=== PATIENT | male | born 1960 | race Caucasian/White ===

== ENCOUNTER 2018-08-11 13:51 | Emergency (ER) | payer MEDICAID ==
[~2018-08-11] VITALS: Ht 165.1 cm; Wt 49.9 kg
[~2018-08-11 13:51] MED LIST: ACET-8386 PO
[2018-08-11 14:02] VITALS: BP 107/50
--- NOTE | 2018-08-11 14:07 | NUR ---
TO BED 5 WITH STEADY GAIT
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
--- NOTE | 2018-08-11 14:33 | NUR ---
DR NGUYEN AT BEDSIDE EVALUATING PT
[2018-08-11 15:03] VITALS: BP 117/57
== END 2018-08-11 15:04 | disposition home or self-care (01) ==
LOC: MED 13:51
DX: M62.830 Muscle spasm of back (principal); R07.81 Pleurodynia; F17.200 Nicotine dependence, unspecified, uncomplicated; F15.10 Other stimulant abuse, uncomplicated; I10 Essential (primary) hypertension; Z71.6 Tobacco abuse counseling; Z71.51 Drug abuse counseling and surveillance of drug abuser; Z98.890 Other specified postprocedural states; Z79.891 Long term (current) use of opiate analgesic
CPT/HCPCS: 71045; 99283; Q0092

== ENCOUNTER 2018-12-18 23:16 | Emergency (ER) | payer MEDICAID ==
[~2018-12-18] VITALS: Ht 157.5 cm; Wt 49.9 kg
[2018-12-18 23:24] VITALS: BP 154/106
--- NOTE | 2018-12-18 23:29 | NUR ---
PT AMBULATES TO LOBBY WITH STEADY GAIT. AWAITING AVAILABLE BED.
--- NOTE | 2018-12-19 00:57 | NUR ---
PT AMBULATED TO BED 09
[2018-12-19] MEDS ORDERED: LIDOCAINE 2% 1000 MG/50 ML VIAL INJ ONE (01:00)
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
--- NOTE | 2018-12-19 01:52 | NUR ---
Patient discharged with v/s stable. Written and verbal after care instructions given and explained. Patient alert, oriented and verbalized understanding of instructions. Ambulatory with steady gait. All questions addressed prior to discharge. ID band removed. Patient advised to follow up with PMD. Rx of bactrim, motrin, and keflex given. Patient educated on indication of medication including possible reaction and side effects. Opportunity to ask questions provided and answered.
== END 2018-12-19 01:52 | disposition home or self-care (01) ==
LOC: MED 23:16
DX: L02.413 Cutaneous abscess of right upper limb (principal); L02.414 Cutaneous abscess of left upper limb; I10 Essential (primary) hypertension; Z79.899 Other long term (current) drug therapy; Z59.0 Homelessness
CPT/HCPCS: 10061; 99284; J2001; 99283

== ENCOUNTER 2019-08-21 01:46 | Emergency (ER) | payer MEDICAID ==
[~2019-08-21] VITALS: Ht 165.1 cm; Wt 54.4 kg
--- NOTE | 2019-08-21 01:46 | NUR ---
Patient BIBA ALS, transfered to bed 7. RN evaluating patient at bedside.
[2019-08-21 01:52] VITALS: BP 183/107
--- NOTE | 2019-08-21 01:59 | NUR ---
[employer] AT BEDSIDE.
--- NOTE | 2019-08-21 01:59 | NUR ---
BREATHING IS LABORED, DEEP. PT ON 15L NON-REBREATHER. PT O2SAT@ 98%. RT AT BEDSIDE. PT ABLE TO RESPOND TO RT.
--- NOTE | 2019-08-21 02:00 | NUR ---
PT BED 7, ASSUME CARE TO ROBERT ABEBE.
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
--- NOTE | 2019-08-21 02:14 | NUR ---
RT AT BEDSIDE. ABG BEING COLLECTED.
[2019-08-21] MEDS ORDERED: NACL 0.9% 1,500 ML IV ONE (02:25)
--- NOTE | 2019-08-21 02:27 | NUR ---
XRAY AT BEDSIDE.
--- NOTE | 2019-08-21 02:40 | NUR ---
HEPLOCK ESTABLISH G18 ON PT LT AC INFUSING WELL. BLD DRANM INCLUDING BLD CULTURE X2 AND SENT TO LAB.
[2019-08-21] MEDS ORDERED: cefTRIAXone 1,000 MG VIAL ONE (02:42)
[2019-08-21 03:03] LABS: BASOPHILS # (AUTO) 0.1 K/uL (0.00-0.22); BASOPHILS % (AUTO) 2.3 % (0.0-2.0); EOSINOPHILS % (AUTO) 0.4 % (0.0-4.0); HEMATOCRIT 43.1 % (36-52); HEMOGLOBIN 14.3 g/dL (12.0-18.0); LYMPHOCYTES # (AUTO) 0.9 K/uL (2.0-11.5); MEAN CORPUSCULAR HEMOGLOBIN 31 pg (27-31); MEAN CORPUSCULAR HGB CONC 33 g/dL (33-37); MEAN CORPUSCULAR VOLUME 94.3 fL (80-94); MONOCYTES # (AUTO) 0.3 K/uL (0.8-1.0); MONOCYTES % (AUTO) 6.1 % (1.7-9.3); NEUTROPHILS # (AUTO) 3.2 K/uL (1.8-7.7); NEUTROPHILS % (AUTO) 72.2 % (42.2-75.2); PLATELET COUNT (AUTO) 174 K/uL (140-450); RED BLOOD CELL COUNT(AUTO) 4.57 MIL/uL (4.20-6.10); RED CELL DISTRIBUTION WIDTH 13.2 % (11.6-13.7); WHITE BLOOD COUNT (AUTO) 4.5 K/uL (4.8-10.8)
[2019-08-21 03:10] LABS: CREATININE 1.7 mg/dL (0.6-1.3)
--- NOTE | 2019-08-21 03:10 | NUR ---
PT ON 2L NC 02 SAT @ 100%. PT LETHARGIC BUT ORIENTED TO PERSON, PLACE, AND TIME. PT DENIES PAIN AT THIS TIME. VSS.
[2019-08-21 03:16] LABS: PROTHROMBIN TIME 10.1 secs (10.8-13.4)
[2019-08-21 03:28] LABS: ALBUMIN 4.1 g/dL (3.4-5.0); TOTAL BILIRUBIN 0.6 mg/dL (0.0-1.0)
[2019-08-21 03:35] LABS: CKMB RELATIVE INDEX 1.5 (0.0-2.5); CREATINE KINASE MB 7.9 ng/mL (0-3.6)
--- NOTE | 2019-08-21 04:00 | NUR ---
PT UNABLE TO PROVIDE UA AT THIS TIME. URINAL LEFT AT BEDSIDE.
--- NOTE | 2019-08-21 05:00 | NUR ---
UA OBTAINED VIA STRAIGHT CATH.
--- NOTE | 2019-08-21 05:34 | NUR ---
ENTERED ROOM WITH PT RESTING IN BED WITH EYES CLOSED. PT RESPONSIVE TO VERBAL STIMULI. PT REMAINS ON TRAFFIC SUPERVISOR. PT VSS. PT BED LOCKED AND IN LOWEST POSTION. PT DENIES PAIN AT THIS TIME.
[2019-08-21 06:46] LABS: APPEARANCE,URINE CLEAR (CLEAR); BILIRUBIN,URINE NEGATIVE (NEGATIVE); BLOOD, URINE TRACE-L (NEGATIVE); COLOR,URINE YELLOW (YELLOW); LEUKOCYTE ESTERASE ,URINE NEGATIVE (NEGATIVE); NITRITE, URINE NEGATIVE (NEGATIVE); UGLUCOSE NEGATIVE (NEGATIVE)
--- NOTE | 2019-08-21 06:50 | NUR ---
Dr. Rowan is re-evaluating the patient.
--- NOTE | 2019-08-21 07:10 | NUR ---
GAVE REPORT TO EKTA ABEBE. TRANSFER OF CARE.
--- NOTE | 2019-08-21 07:19 | NUR ---
received report from mady franklin ,pt in bed sleeping with stable v/s, side rails up and lock.
[2019-08-21 07:36] LABS: HYALINE CASTS, URINE 0-10 /LPF (None Seen); RBC,URINE 0-5 /HPF (0-5); WBC,URINE 0-5 /HPF (0-5)
--- NOTE | 2019-08-21 07:41 | NUR ---
pt in bed in sitting position no complaint at this time.
--- NOTE | 2019-08-21 07:56 | NUR ---
dr burroughs at bedside reevaluating pt.
--- NOTE | 2019-08-21 08:05 | NUR ---
pt awake , sitting in bed eating breakfast .
--- NOTE | 2019-08-21 08:41 | NUR ---
[employer] SIDES at bedside
--- NOTE | 2019-08-21 09:09 | NUR ---
dr burroughs at bedside reevaluating pt.
--- NOTE | 2019-08-21 09:31 | NUR ---
TRESSA ([id number]) [phone]
[2019-08-21 09:43] VITALS: BP 123/73
--- NOTE | 2019-08-21 09:43 | NUR ---
Patient discharged with v/s stable. Written and verbal after care instructions given and explained. Patient verbalized understanding. Ambulatory with steady gait. All questions addressed prior to discharge. Advised to follow up with PMD.
== END 2019-08-21 09:43 | disposition home or self-care (01) ==
LOC: MED 01:46
DX: R41.82 Altered mental status, unspecified (principal); E87.2 Acidosis; F32.9 Major depressive disorder, single episode, unspecified; F11.90 Opioid use, unspecified, uncomplicated; R00.1 Bradycardia, unspecified
CPT/HCPCS: 36415; 36600; 71045; 80053; 81001; 82550; 82553; 82803; 83605; 83874; 83880; 84484; 85025; 85610; 85730; 87040; 87086; 93005; 96365; 99291; J0696; J7030; Q0092; 99285

== ENCOUNTER 2020-07-28 16:16 | Emergency (ER) | payer MEDICAID ==
[~2020-07-28] VITALS: Ht 162.6 cm; Wt 59.0 kg
--- NOTE | 2020-07-28 16:20 | NUR ---
DR MAST AT BEDSIDE EXAMINING PT
[2020-07-28 16:21] VITALS: BP 160/82
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
[2020-07-28 17:49] LABS: BASOPHILS % (AUTO) 0.1 % (0.0-2.0); EOSINOPHILS % (AUTO) 0.3 % (0.0-4.0); HEMATOCRIT 39.6 % (36-52); HEMOGLOBIN 13.4 g/dL (12.0-18.0); LYMPHOCYTES # (AUTO) 0.8 K/uL (2.0-11.5); MEAN CORPUSCULAR HEMOGLOBIN 31 pg (27-31); MEAN CORPUSCULAR HGB CONC 34 g/dL (33-37); MEAN CORPUSCULAR VOLUME 90.7 fL (80-94); MONOCYTES # (AUTO) 0.5 K/uL (0.8-1.0); MONOCYTES % (AUTO) 4.8 % (1.7-9.3); NEUTROPHILS # (AUTO) 8.4 K/uL (1.8-7.7); NEUTROPHILS % (AUTO) 86.8 % (42.2-75.2); PLATELET COUNT (AUTO) 233 K/uL (140-450); RED BLOOD CELL COUNT(AUTO) 4.36 MIL/uL (4.20-6.10); RED CELL DISTRIBUTION WIDTH 14.1 % (11.6-13.7); WHITE BLOOD COUNT (AUTO) 9.7 K/uL (4.8-10.8)
--- NOTE | 2020-07-28 17:50 | NUR ---
PT REQUESTING FOR WATER. PER DR PRO MURRIETA TO GIVE WATER. WATER PROVIDED.
[2020-07-28 17:55] LABS: ANION GAP 14.9 (8-16); CARBON DIOXIDE 29.9 mmol/L (21-32); POTASSIUM 3.8 mmol/L (3.5-5.1)
[2020-07-28] MEDS ORDERED: NALO4SPR NS (18:41)
[2020-07-28 18:54] VITALS: BP 160/82
--- NOTE | 2020-07-28 18:54 | NUR ---
Patient discharged with v/s stable. Written and verbal after care instructions given and explained. Patient alert, oriented and verbalized understanding of instructions. Ambulatory with steady gait. All questions addressed prior to discharge. ID band removed. Patient advised to follow up with PMD. Rx of NARCAN given. Patient educated on indication of medication including possible reaction and side effects. Opportunity to ask questions provided and answered.
== END 2020-07-28 18:54 | disposition home or self-care (01) ==
LOC: MED 16:16
DX: T40.2X1A Poisoning by other opioids, accidental (unintentional), initial encounter (principal); Y92.89 Other specified places as the place of occurrence of the external cause
CPT/HCPCS: 36415; 80048; 85025; 99291

== ENCOUNTER 2021-11-27 21:55 | Emergency (ER) | payer MEDICAID ==
[~2021-11-27] VITALS: Ht 162.6 cm; Wt 61.2 kg
[~2021-11-27 21:55] MED LIST changes: +NALO4SPR NS
--- NOTE | 2021-11-27 21:57 | NUR ---
PT BROUGHT TO BED 12 VIA [facility]
[2021-11-27 21:58] VITALS: BP 201/121
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
--- NOTE | 2021-11-27 22:42 | NUR ---
Dr. Braswell examining patient.
[2021-11-27] MEDS ORDERED: NALO4SPR NS (23:01)
--- NOTE | 2021-11-28 00:16 | NUR ---
Patient walke to restroom, stady gait
[2021-11-28 00:26] VITALS: BP 161/90
--- NOTE | 2021-11-28 00:26 | NUR ---
Patient discharged with v/s stable. Written and verbal after care instructions given and explained. Patient alert, oriented and verbalized understanding of instructions. Ambulatory with steady gait. All questions addressed prior to discharge. ID band removed. Patient advised to follow up with PMD. Rx of Narcan given. Patient educated on indication of medication including possible reaction and side effects. Opportunity to ask questions provided and answered.
--- NOTE | 2021-11-28 00:42 | NUR ---
Patient will go home via [place].
== END 2021-11-28 00:26 | disposition home or self-care (01) ==
LOC: MED 21:55
DX: T40.2X1A Poisoning by other opioids, accidental (unintentional), initial encounter (principal); Y92.89 Other specified places as the place of occurrence of the external cause
CPT/HCPCS: 99283